=== PATIENT | male | born 1985 | race Caucasian/White ===

== ENCOUNTER 2017-12-12 13:54 | Emergency (ER) | payer BC, OTHER ==
[~2017-12-12 13:54] MED LIST: PER PO
[2017-12-12] MEDS ORDERED: TAMS0.4C25 PO (14:01)
--- NOTE | 2017-12-12 14:07 | ER Report ---
History and Physical Time Seen By MD: 14:06 Hx. of Stated Complaint: DIAGNOSED WITH KIDNEY STONE ON SATURDAY AND HAS NOT PASSED IT. C/O RIGHT FLANK PAIN, DIFFICULTY URINATING. HPI/ROS chief concern: kidney stones HPI: 32 y/o male presents with concern of kidney stones x7 days. Reports he was seen one week ago in [place] and told he has a 3mm stone, right kidney. He has been taking Flomax daily, and has 7 more days of prescription. Denies chills/ sweats, fevers. Reports vomiting x1 this morning. Reports pain right lower back and right hip area. Review of Systems Respiratory: Denies shortness of breath, dyspnea CV: Denies chest pain. GI: Reports nausea, one episode of vomiting this morning. Denies diarrhea. : Reports non-passage of kidney stone x1week. Reports dysuria. Allergies: Coded Allergies: No Known Drug Allergies (Verified , 12/12/17) Home Meds Active Scripts Ketorolac Tromethamine (KETOROLAC TROMETHAMINE) 10 Mg Tab, 10 MG PO Q6H for 5 Days, #20 TAB Prov:JILLIAN STUART 12/12/17 Hydrocodone Bit/Acetaminophen (HYDROCODON-ACETAMINOPHEN 5-325) 1 Each Tablet, 1 EACH PO Q4-6H Y for PAIN, #12 TAB Prov:JILLIAN STUART 12/12/17 Ondansetron (ZOFRAN ODT) 4 Mg Tab.rapdis, 4 MG PO Q6H Y for NAUSEA/VOMITING for 7 Days, #20 TAB.PRINCESS Prov:JILLIAN STUART 12/12/17 Reported Medications Tamsulosin Hcl (FLOMAX) 0.4 Mg Cap.er.24h, 0.4 MG PO DAILY, CAP 12/12/17 Discontinued Reported Medications Oxycodone/Acetaminophen (OXYCODONE/ACETAMINOPHEN 5MG/325 MG) 5 Mg/325 Mg Tab, 1 - 2 TAB PO Q4-6H, #30 0 Refills 04/04/10 Past Medical/Surgical History Reports history of gout. History of surgery includes L4-5 ruptured disc, and unspecified ankle reconstructive surgery. Reviewed Nurses Notes: Yes Old Medical Records Reviewed: No Hx Substance Use Disorder: No Hx Alcohol Use: Yes (OCC) Constitutional Vital Sign - Last 24 Hours 12/12/17 12/12/17 12/12/17/15/18 13:58 14:00 14:02 16:00 Temp 98.5 Pulse 90 89 Resp 16 B/P (MAP) 139/86 139/86 (103) 146/83 (104) 136/84 (101) Pulse Ox 95 95 O2 Delivery Room Air Intake and Output 12/12/17 12/12/17 12/13/17 15:00 23:00 07:00 Intake Total 1000 ml Balance 1000 ml Physical Exam Physical Exam: General: Alert, oriented x3. Respiratory: Clear to auscultation bilaterally. CV: regular rate and rhythm. No peripheral edema. GI: bowel sounds hypoactive all quadrants. Scattered tympany and dullness to percussion. Nontender to palpation. Negative CVA tenderness, but stated pain to palpation right lower back. Negative referred pain, rebound pain, or Mohr's sign. After obtaining thorough HPI, ROS, and physical exam, the following differentials were considered but not limited to: kidney stone, appendicitis, UTI, testicular torsion, small bowel obstruction. Medical Decision Making Data Points Result Diagram: 12/12/17 1420 12/12/17 1420 Laboratory Hematology Test 12/12/17 14:20 12/12/17 14:30 Red Blood Count 4.88 M/uL (4.00-5.60) Mean Corpuscular Volume 87.6 fL (80.0-96.0) Mean Corpuscular Hemoglobin 30.0 pg (26.0-33.0) Mean Corpuscular Hemoglobin Concent 34.3 g/dL (32.0-36.0) Red Cell Distribution Width 12.7 % (11.5-14.5) Mean Platelet Volume 7.8 fL (7.2-11.1) Neutrophils (%) (Auto) 70.1 % (39.4-72.5) Lymphocytes (%) (Auto) 20.6 % (17.6-49.6) Monocytes (%) (Auto) 7.3 % (4.1-12.4) Eosinophils (%) (Auto) 1.5 % (0.4-6.7) Basophils (%) (Auto) 0.5 % (0.3-1.4) Nucleated RBC Relative Count (auto) 0.0 /100WBC Neutrophils # (Auto) 7.0 K/uL (2.0-7.4) Lymphocytes # (Auto) 2.1 K/uL (1.3-3.6) Monocytes # (Auto) 0.7 K/uL (0.3-1.0) Eosinophils # (Auto) 0.1 K/uL (0.0-0.5) Basophils # (Auto) 0.1 K/uL (0.0-0.1) Nucleated RBC Absolute Count (auto) 0.00 K/uL Sodium Level 133 mmol/L (137-145) Potassium Level 3.7 mmol/L (3.5-5.0) Chloride Level 95 mmol/L (98-107) Carbon Dioxide Level 27 mmol/L (22-30) Blood Urea Nitrogen 18 mg/dl (9-21) Creatinine 1.20 mg/dl (0.66-1.25) Glomerular Filtration Rate Calc > 60.0 Random Glucose 92 mg/dl (75-110) Calcium Level 9.6 mg/dl (8.4-10.2) Total Bilirubin 0.7 mg/dl (0.2-1.3) Aspartate Amino Transf (AST/SGOT) 27 U/L (0-35) Alanine Aminotransferase (ALT/SGPT) 56 U/L (0-56) Alkaline Phosphatase 79 U/L (0-126) Total Protein 8.0 gm/dl (6.3-8.2) Albumin 4.2 g/dl (3.5-5.0) Urine Color Yellow Urine Clarity Clear Urine pH 5.0 pH (4.8-9.5) Urine Specific [place] 1.021 Urine Protein Negative mg/dL (NEGATIVE) Urine Glucose (UA) Negative mg/dL (NEGATIVE) Urine Ketones Trace mg/dL (NEGATIVE) Urine Blood Moderate (NEGATIVE) Urine Nitrite Negative (NEGATIVE) Urine Bilirubin Negative (NEGATIVE) Urine Urobilinogen Negative mg/dL (0.2-1.9) Urine Leukocyte Esterase Negative (NEGATIVE) Urine RBC 32 /HPF (0-2/HPF) Urine WBC None /HPF (0-5/HPF) Urine Squamous Epithelial Cells None /LPF (</=FEW) Urine Bacteria Negative /HPF (NONE-FEW) Urine Mucus Few /HPF (NONE-FEW) Chemistry Test 12/12/17 14:20 12/12/17 14:30 White Blood Count 10.0 k/uL (4.5-11.0) Red Blood Count 4.88 M/uL (4.00-5.60) Hemoglobin 14.6 g/dL (14.0-18.0) Hematocrit 42.7 % (42.0-52.0) Mean Corpuscular Volume 87.6 fL (80.0-96.0) Mean Corpuscular Hemoglobin 30.0 pg (26.0-33.0) Mean Corpuscular Hemoglobin Concent 34.3 g/dL (32.0-36.0) Red Cell Distribution Width 12.7 % (11.5-14.5) Platelet Count 336 K/uL (150-450) Mean Platelet Volume 7.8 fL (7.2-11.1) Neutrophils (%) (Auto) 70.1 % (39.4-72.5) Lymphocytes (%) (Auto) 20.6 % (17.6-49.6) Monocytes (%) (Auto) 7.3 % (4.1-12.4) Eosinophils (%) (Auto) 1.5 % (0.4-6.7) Basophils (%) (Auto) 0.5 % (0.3-1.4) Nucleated RBC Relative Count (auto) 0.0 /100WBC Neutrophils # (Auto) 7.0 K/uL (2.0-7.4) Lymphocytes # (Auto) 2.1 K/uL (1.3-3.6) Monocytes # (Auto) 0.7 K/uL (0.3-1.0) Eosinophils # (Auto) 0.1 K/uL (0.0-0.5) Basophils # (Auto) 0.1 K/uL (0.0-0.1) Nucleated RBC Absolute Count (auto) 0.00 K/uL Glomerular Filtration Rate Calc > 60.0 Calcium Level 9.6 mg/dl (8.4-10.2) Total Bilirubin 0.7 mg/dl (0.2-1.3) Aspartate Amino Transf (AST/SGOT) 27 U/L (0-35) Alanine Aminotransferase (ALT/SGPT) 56 U/L (0-56) Alkaline Phosphatase 79 U/L (0-126) Total Protein 8.0 gm/dl (6.3-8.2) Albumin 4.2 g/dl (3.5-5.0) Urine Color Yellow Urine Clarity Clear Urine pH 5.0 pH (4.8-9.5) Urine Specific [place] 1.021 Urine Protein Negative mg/dL (NEGATIVE) Urine Glucose (UA) Negative mg/dL (NEGATIVE) Urine Ketones Trace mg/dL (NEGATIVE) Urine Blood Moderate (NEGATIVE) Urine Nitrite Negative (NEGATIVE) Urine Bilirubin Negative (NEGATIVE) Urine Urobilinogen Negative mg/dL (0.2-1.9) Urine Leukocyte Esterase Negative (NEGATIVE) Urine RBC 32 /HPF (0-2/HPF) Urine WBC None /HPF (0-5/HPF) Urine Squamous Epithelial Cells None /LPF (</=FEW) Urine Bacteria Negative /HPF (NONE-FEW) Urine Mucus Few /HPF (NONE-FEW) Urinalysis Test 12/12/17 14:30 Urine Color Yellow Urine Clarity Clear Urine pH 5.0 pH (4.8-9.5) Urine Specific [place] 1.021 Urine Protein Negative mg/dL (NEGATIVE) Urine Glucose (UA) Negative mg/dL (NEGATIVE) Urine Ketones Trace mg/dL (NEGATIVE) Urine Blood Moderate (NEGATIVE) Urine Nitrite Negative (NEGATIVE) Urine Bilirubin Negative (NEGATIVE) Urine Urobilinogen Negative mg/dL (0.2-1.9) Urine Leukocyte Esterase Negative (NEGATIVE) Urine RBC 32 /HPF (0-2/HPF) Urine WBC None /HPF (0-5/HPF) Urine Squamous Epithelial Cells None /LPF (</=FEW) Urine Bacteria Negative /HPF (NONE-FEW) Urine Mucus Few /HPF (NONE-FEW) EKG/Imaging Imaging CT abdomen and pelvis with IV contrast Indication: Abdominal pain. Right flank pain. Comparison: None available. . Technique: Axial CT images were obtained through the abdomen and pelvis during injection of nonionic iodinated intravenous contrast. Reformatted coronal and sagittal images were also obtained. One of the following dose optimization techniques was utilized in the performance of this exam: Automated exposure control; adjustment of the mA and/ or kV according to the patient's size; or use of an iterative reconstruction technique. Specific details can be referenced in the facility's radiology CT exam operational policy. Contrast: 75 ml of Isovue-370 IV contrast. Findings: Lower lung thornton: Mild scarring in the left lower lobe. Otherwise clear. Liver: No focal parenchymal abnormality of the liver. Biliary: Gallbladder appears unremarkable as well as the intra and extra hepatic biliary system. Pancreas: Normal appearance. Spleen: Normal appearance. Adrenal glands: Unremarkable. Kidneys / retroperitoneum: Right kidney does show mild hydronephrosis and mild delay function compared to left. There is a 2 mm stone at the right UVJ without other stones identified. No discrete right renal lesion. Left kidney shows no stones, hydronephrosis or discrete lesion. Bowel / peritoneum / mesenteries: Visualized gastrointestinal tract, including appendix is within normal limits for this couple areas of focal contractions in the sigmoid colon. The stomach is unremarkable. No free air, free fluid or fluid collections. Small buckle hernia containing fat. No focal areas of inflammation. Lymph node assessment: No pathologic adenopathy identified. Pelvic structures: Appear unremarkable. Vessels: No significant atherosclerotic calcifications seen throughout a nonaneurysmal abdominal aorta and branches. Musculoskeletal / Body wall: No acute or aggressive osseous abnormality. IMPRESSION: 1. 2 mm stone at the right UVJ causing mild right hydronephrosis and mild nephropathy changes with mild delay function compared to left. Report Dictated By: Rojelio Moran at 12/12/2017 3:17 PM Report E-Signed By: Rojelio Moran at 12/12/2017 3:23 PM ED Course/Re-evaluation ED Course Patient admitted to exam room. Thorough HPI and ROS obtained. Physical exam revealed lungs clear to auscultation, heart sounds regular rate and rhythm. Bowel sounds hypoactive all quadrants. Scattered tympany and dullness to percussion. Nontender to palpation. Negative CVA tenderness, but stated pain to palpation right lower back. Negative referred pain, rebound pain, or Mohr's sign. The following differentials were considered but not limited to: kidney stone, appendicitis, UTI, testicular torsion, small bowel obstruction. Tests completed included: CBC, CMP, UA, and CT of abdomen/pelvis with contrast. CBC showed no evidence of hemodynamic instability or infection. CMP showed no electrolyte abnormalities or organ damage. UA showed trace ketones, moderate blood, and few mucus. CT IMPRESSION: 1. 2 mm stone at the right UVJ causing mild right hydronephrosis and mild nephropathy changes with mild delay function compared to left. Findings discussed with patient, as well as continued care for passage of kidney stones. Recommended follow up with urology in [facility] patient's homet[facility]. Prescribed Zofran for nausea, Toradol for pain management when active , hydrocodone for pain management at home and at night. Continue with Flomax. Patient verbalized understanding and agreed to plan. Decision to Disposition Date: Dec 12, 2017 Decision to Disposition Time: 16:32 Depart Departure Latest Vital Signs Vital Signs Date Time Temp Pulse Resp B/P (MAP) Pulse Ox O2 Delivery O2 Flow Rate FiO2 12/12/17 16:00 136/84 (101) 12/12/17 14:00 89 95 12/12/17 13:58 98.5 16 Room Air Impression: Primary Impression: Kidney stone on right side Condition: Improved Disposition: HOME OR SELF-CARE New Scripts Ketorolac Tromethamine (KETOROLAC TROMETHAMINE) 10 Mg Tab 10 MG PO Q6H for 5 Days, #20 TAB Prov: JILLIAN STUART 12/12/17 Hydrocodone Bit/Acetaminophen (HYDROCODON-ACETAMINOPHEN 5-325) 1 Each Tablet 1 EACH PO Q4-6H Y for PAIN, #12 TAB Prov: JILLIAN STUART 12/12/17 Ondansetron (ZOFRAN ODT) 4 Mg Tab.rapdis 4 MG PO Q6H Y for NAUSEA/VOMITING for 7 Days, #20 TAB.PRINCESS Prov: JILLIAN STUART 12/12/17 Patient Instructions: Kidney Stones (ED) Additional Instructions: Drink plenty of fluids. Continue with Flomax daily. Follow up with urology within the next week. Take zofran as needed for nausea. Take Toradol for pain relief when you are at work, driving, or operating machinery. Take hydrocodone for pain when you are at home and inactive. Return to ED if symptoms worsen. JILLIAN STUART Dec 12, 2017 14:06
[2017-12-12] MEDS ORDERED: NS(*) 0.9% 1000 ML BAG 1,000 ML IV ONE (14:25)
[2017-12-12] MEDS ORDERED: KETOROLAC 30 MG/ML VIAL IVP ONE (14:25)
[2017-12-12] MEDS ORDERED: IOPAMIDOL 76% 75 ML INFUS BTL 75 ML ONE (14:43)
[2017-12-12 14:57] LABS: PLATELET COUNT, AUTOMATED 336 K/uL (150-450)
--- NOTE | 2017-12-12 15:28 | RADIOLOGY IMAGING REPORT ---
FACILITY: [facility] PATIENT NAME: Raad Virk : 1985 MR: [id number] V: [id number] EXAM DATE: ORDERING PHYSICIAN: JILILAN STUART TECHNOLOGIST: Location: [facility] Patient: Raad Virk : 1985 Visit/Account:[id number] Date of Sevice: 12/12/2017 CT abdomen and pelvis with IV contrast Indication: Abdominal pain. Right flank pain. Comparison: None available. . Technique: Axial CT images were obtained through the abdomen and pelvis during injection of nonioni c iodinated intravenous contrast. Reformatted coronal and sagittal images were also obtained. One of the following dose optimization techniques was utilized in the performance of this exam: Autom ated exposure control; adjustment of the mA and/or kV according to the patient's size; or use of an i terative reconstruction technique. Specific details can be referenced in the facility's radiology C T exam operational policy. Contrast: 75 ml of Isovue-370 IV contrast. Findings: Lower lung thornton: Mild scarring in the left lower lobe. Otherwise clear. Liver: No focal parenchymal abnormality of the liver. Biliary: Gallbladder appears unremarkable as well as the intra and extra hepatic biliary system. Pancreas: Normal appearance. Spleen: Normal appearance. Adrenal glands: Unremarkable. Kidneys / retroperitoneum: Right kidney does show mild hydronephrosis and mild delay function compare d to left. There is a 2 mm stone at the right UVJ without other stones identified. No discrete right renal lesion. Left kidney shows no stones, hydronephrosis or discrete lesion. Bowel / peritoneum / mesenteries: Visualized gastrointestinal tract, including appendix is within nor mal limits for this couple areas of focal contractions in the sigmoid colon. The stomach is unremarka ble. No free air, free fluid or fluid collections. Small buckle hernia containing fat. No focal areas of i nflammation. Lymph node assessment: No pathologic adenopathy identified. Pelvic structures: Appear unremarkable. Vessels: No significant atherosclerotic calcifications seen throughout a nonaneurysmal abdominal aort a and branches. Musculoskeletal / Body wall: No acute or aggressive osseous abnormality. IMPRESSION: 1. 2 mm stone at the right UVJ causing mild right hydronephrosis and mild nephropathy changes with mi ld delay function compared to left. Report Dictated By: Rojelio Moran at 12/12/2017 3:17 PM Report E-Signed By: Rojelio Moran at 12/12/2017 3:23 PM WSN:[id number]
[2017-12-12 16:00] VITALS: BP 136/84
[2017-12-12] MEDS ORDERED: KET10 PO (16:32)
[2017-12-12] MEDS ORDERED: ONDA4TAB PO (16:32)
[2017-12-12] MEDS ORDERED: HYDR-385 PO (16:32)
== END 2017-12-12 16:40 | disposition home or self-care (01) ==
LOC: ER 13:55
DX: N20.0 Calculus of kidney (principal); N13.30 Unspecified hydronephrosis
CPT/HCPCS: 74177; 81001; 85025; 96361; 96374; 99284; J1885; J7030; Q9967; 82040; 82247; 82310; 82374; 82435; 82565; 82947; 84075; 84132; 84155; 84295; 84450; 84460; 84520